=== PATIENT | male | born 1990 | race Caucasian/White ===

== ENCOUNTER 2018-01-06 10:00 | Emergency (ER) | payer OTHER ==
[~2018-01-06] VITALS: Ht 170.2 cm; Wt 59.0 kg
[2018-01-06 10:08] VITALS: Ht 170.2 cm; Wt 59.0 kg
[2018-01-06 10:21] VITALS: BP 114/52
== END 2018-01-06 10:21 | disposition other institution (70) ==
LOC: ED 10:00
DX: F15.90 Other stimulant use, unspecified, uncomplicated (principal); R00.0 Tachycardia, unspecified

== ENCOUNTER 2019-04-09 20:53 | Emergency (ER) | payer SELFPAY ==
[~2019-04-09] VITALS: Ht 165.1 cm; Wt 68.5 kg
[2019-04-09 21:22] VITALS: Ht 165.1 cm; Wt 68.5 kg
[2019-04-09 22:21] VITALS: BP 108/59
== END 2019-04-09 22:21 | disposition home or self-care (01) ==
LOC: ED 20:53
DX: M75.22 Bicipital tendinitis, left shoulder (principal); M75.21 Bicipital tendinitis, right shoulder
CPT/HCPCS: J1885

== ENCOUNTER 2020-04-03 10:21 | Emergency (ER) | payer OTHER ==
[~2020-04-03] VITALS: Ht 170.2 cm; Wt 72.1 kg
[2020-04-03 10:36] VITALS: BP 118/74; Ht 170.2 cm; Wt 72.1 kg
== END 2020-04-03 13:11 | disposition home or self-care (01) ==
LOC: ED 10:21
DX: S20.212A Contusion of left front wall of thorax, initial encounter (principal); W22.8XXA Striking against or struck by other objects, initial encounter; Y93.89 Activity, other specified; Y92.89 Other specified places as the place of occurrence of the external cause; Y99.8 Other external cause status
CPT/HCPCS: J1885; Q0092

== ENCOUNTER 2020-06-11 20:47 | Emergency (ER) | payer OTHER ==
[~2020-06-11] VITALS: Ht 165.1 cm; Wt 71.8 kg
[2020-06-11 20:59] VITALS: Ht 165.1 cm; Wt 71.8 kg
[2020-06-11 21:18] LABS: BASOPHIL % 0.6 % (0-2); PLATELET COUNT 267 x10^3mcL (130-400); RED CELL DISTRIBUTION WIDTH 13.7 % (11.5-14.5)
[2020-06-11 21:33] LABS: CALCIUM 8.9 mg/dL (8.5-10.1); CARBON DIOXIDE 28.5 mmol/L (21-32); CREATININE SERUM 1.6 mg/dL (0.7-1.3); POTASSIUM SERUM 3.7 mmol/L (3.5-5.1)
[2020-06-11 21:38] LABS: ALBUMIN 4.3 g/dL (3.4-5.0); BILIRUBIN TOTAL 0.94 mg/dL (0.20-1.00); TOTAL PROTEIN, SERUM 7.5 g/dL (6.4-8.2)
[2020-06-11 21:46] LABS: AMPHETAMINE QUAL UR POSITIVE (See below)
[2020-06-11 23:30] VITALS: BP 116/80
== END 2020-06-11 23:30 | disposition home or self-care (01) ==
LOC: ED 20:47
PROVIDERS: Specialist
DX: R10.13 Epigastric pain (principal); F15.10 Other stimulant abuse, uncomplicated; Z90.49 Acquired absence of other specified parts of digestive tract
CPT/HCPCS: Q0092

== ENCOUNTER 2020-06-24 10:14 | Emergency (ER) | payer OTHER ==
[~2020-06-24] VITALS: Ht 167.6 cm; Wt 84.4 kg
[2020-06-24 10:20] VITALS: Ht 167.6 cm; Wt 84.4 kg
[2020-06-24 11:04] VITALS: BP 118/78
== END 2020-06-24 11:04 | disposition home or self-care (01) ==
LOC: ED 10:14
DX: Z02.79 Encounter for issue of other medical certificate (principal); F15.90 Other stimulant use, unspecified, uncomplicated; Z87.19 Personal history of other diseases of the digestive system